=== PATIENT | male | born 1960 | race Caucasian/White ===

== ENCOUNTER 2016-11-19 08:04 | Day surgery (SDC) | payer OTHER ==
[~2016-11-19] VITALS: Ht 185.4 cm; Wt 104.3 kg
[~2016-11-19 08:04] MED LIST: 0.9% Sodium Chloride 1,000 ML IV SCH; ALL60 PO; CHOL10008 PO; GLUCOSAMINE; IBUP200C PO; SERT100T PO; Sodium Chloride LOK Flush 10 mL Syringe IV PRN; fentaNYL-PF 50 mCg/mL 2 mL Inj IVPUSH PRN
[2016-11-19 08:27] VITALS: BP 144/56; PULSE 55; RESP 16; O2SAT 97
[2016-11-19 09:34] VITALS: BP 121/84; PULSE 61; RESP 14; O2SAT 93
[2016-11-19 09:44] VITALS: BP 121/84; PULSE 50; RESP 14; O2SAT 98
[2016-11-19 09:54] VITALS: BP 121/84; PULSE 54; RESP 14; O2SAT 100
--- NOTE | 2016-11-19 10:11 | ENDO ---
[address] [address] ENDOSCOPY PROCEDURE PATIENT: OMAYRA PETERS : 1960 MR#: [id number] ADMIT: 11/19/2016 JOB ID: [id number] DATE: 11/19/2016 PREOPERATIVE DIAGNOSIS: Personal history of colon polyps and family history of colon cancer. POSTOPERATIVE DIAGNOSIS: Normal colonoscopy to cecum. OPERATION: Colonoscopy to cecum. SURGEON: Simon Martinez MD. INDICATIONS: The patient is a 56-year-old man who five years ago I performed a colonoscopy, found a small tubular adenoma and a hyperplastic polyp. He returns now for follow up colonoscopy. He also reports a family history of colon cancer. FINDINGS: He had a good prep. The scope was advanced to the cecum. It was withdrawn over 12 minutes and 1 second using suction and irrigation liberally. No polyps were identified. No diverticula were identified. No vascular or inflammatory lesions. Retroflex views of the rectum were normal and the digital rectal examination was normal. DESCRIPTION OF PROCEDURE: The procedure and sedation plan was discussed with the patient and nursing staff. He received 5 mg of Versed and 100 mcg of fentanyl. Olympus PCF H 180 AL video colonoscope was passed transanally, advanced to the cecum, withdrawn over 12 minutes and 1 second with results as stated above. There was sharp angulation of the splenic flexure. Otherwise advancing the scope was straightforward. IMPRESSION: Normal colonoscopy to cecum. Because of his personal and family history, recommend colonoscopy five years.
== END 2016-11-19 23:59 | disposition home or self-care (01) ==
LOC: END 08:04
PROVIDERS: ATTEND Surgery
DX: Z12.11 Encounter for screening for malignant neoplasm of colon (principal); Z86.010 Personal history of colon polyps; F41.9 Anxiety disorder, unspecified; M54.9 Dorsalgia, unspecified
CPT/HCPCS: 99153; G0105; G0500; J2250; J3010; J7030